=== PATIENT | male | born 1990 | race Caucasian/White ===

== ENCOUNTER 2023-01-18 21:52 | Emergency (ER) | payer OTHER ==
[~2023-01-18] VITALS: Ht 167.6 cm; Wt 75.7 kg
[2023-01-18 22:12] VITALS: BP 131/83; TEMP 98.1; O2SAT 98
[2023-01-18] MEDS ORDERED: TDAP [DIPH/PERTUSSIS/TET] 0.5 ML VIAL IM ONE (22:17)
[2023-01-18] MEDS: TDAP [DIPH/PERTUSSIS/TET] 0.5 ML VIAL IM ONE (22:18)
== END 2023-01-18 22:57 | disposition home or self-care (01) ==
LOC: ER 21:57
DX: S61.210A Laceration without foreign body of right index finger without damage to nail, initial encounter (principal); W26.0XXA Contact with knife, initial encounter; Y93.89 Activity, other specified; Y92.89 Other specified places as the place of occurrence of the external cause; Y99.8 Other external cause status
CPT/HCPCS: 90715